=== PATIENT | male | born 1990 | race Caucasian/White ===

== ENCOUNTER → 2017-06-06 | Outpatient (CLI) | payer OTHER ==
[~2017-06-06] MED LIST: LIDOCAINE-MPF 1%, 5ML ONE; OMNIPAQUE 300 MG/ML, 10ML VIAL ONE; ROPivacaine/PF 0.2%, 10 ML ONE; TRIAMCINOLONE ACETONIDE 40 MG/ML, 1ML ONE
== END | disposition home or self-care (01) ==
LOC: RAD 12:58
PROVIDERS: ATTEND Nurse Practitioner
DX: M25.571 Pain in right ankle and joints of right foot (principal)
CPT/HCPCS: 20605; 77002; J2795; J3301; Q9967

== ENCOUNTER 2020-08-09 20:39 | Emergency (ER) | payer OTHER ==
[~2020-08-09] VITALS: Ht 185.4 cm; Wt 125.0 kg
[2020-08-09 21:08] VITALS: BP 139/70
[2020-08-09] MEDS ORDERED: PLEASE ENTER ALLERGIES MC SCH (21:30)
[2020-08-09] MEDS ORDERED: DIPH,PERTUSS(ACELL),TET VAC/PF 0.5 ML IM-VACC ONE ×2 (21:30→23:26)
--- NOTE | 2020-08-09 23:21 | NUR ---
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
--- NOTE | 2020-08-09 23:31 | NUR ---
PT BACK TO ROOM. VSS. PT GIVEN TDAP AND WAITING FOR MD TO EVALUATE
[2020-08-09] MEDS ORDERED: LIDOCAINE-MPF 1%, 5ML ONE (23:37)
[2020-08-09] MEDS ORDERED: IBUPROFEN 600 MG TABLET ONE (23:57)
[2020-08-09] MEDS ORDERED: CIPROFLOXACIN 500 MG TABLET ONE (23:57)
[2020-08-09] MEDS ORDERED: CEPHALEXIN 500 MG CAPSULE ONE (23:57)
[2020-08-09] MEDS ORDERED: HYDROcodone/APAP 5/325 TABLET ONE (23:58)
[2020-08-10] MEDS ORDERED: CIPROFLOXACIN 500 MG TABLET PO ONE
[2020-08-10] MEDS ORDERED: HYDROcodone/APAP 5/325 TABLET PO ONE
[2020-08-10] MEDS ORDERED: CEPHALEXIN 500 MG CAPSULE PO ONE
[2020-08-10] MEDS ORDERED: IBUPROFEN 600 MG TABLET PO ONE
--- NOTE | 2020-08-10 00:29 | NUR ---
Patient given discharge instructions and they have confirmed that they understand the instructions. Patient ambulatory with steady gait.
== END 2020-08-10 00:31 | disposition home or self-care (01) ==
LOC: ED 23:33
DX: S91.145A Puncture wound with foreign body of left lesser toe(s) without damage to nail, initial encounter (principal); F17.200 Nicotine dependence, unspecified, uncomplicated; X58.XXXA Exposure to other specified factors, initial encounter; Y93.89 Activity, other specified; Y92.410 Unspecified street and highway as the place of occurrence of the external cause; Y99.8 Other external cause status
CPT/HCPCS: 90471; 90715